=== PATIENT | male | born 1960 | race Caucasian/White ===

== ENCOUNTER 2023-09-22 08:02 | Day surgery (SDC) | payer OTHER ==
[2023-09-14 16:00] VITALS: BMI 23.7
[2023-09-22 10:12] VITALS: TEMP 97
[2023-09-22 10:13] VITALS: RESP 16
[2023-09-22 10:14] VITALS: BP 132/75; PULSE 58
== END 2023-09-22 10:30 | disposition home or self-care (01) ==
LOC: FASU-ENDO 08:02
PROVIDERS: ATTEND Internal Medicine Gastroenterology
PROC: 0DBN8ZX Excision of Sigmoid Colon, Via Natural or Artificial Opening Endoscopic, Diagnostic (ICD-10-PCS; principal; 2023-09-22 09:35)
DX: Z12.11 Encounter for screening for malignant neoplasm of colon (principal); K63.5 Polyp of colon
CPT/HCPCS: 88305-TC